=== PATIENT | female | born 1970 | race African-American/Black ===

== ENCOUNTER 2016-10-04 08:50 | Emergency (ER) | payer OTHER ==
[~2016-10-04] VITALS: Ht 167.6 cm; Wt 127.0 kg
--- NOTE | ~2016-10-04 | EKG ---
[address] [address] [place] [address] ELECTROCARDIOGRAM REPORT Name: RENETTA WISE Nikole [id number] Admission: 10/04/16 Attend Phys: Discharge: 10/04/16 Date of : 72 Report #: [id number] THIS REPORT FOR: //name// [facility] ED Test Date: 2016-10-04 Test Time: 08:55:23 Pat Name: RENETTA WISE Department: Room: Gender: F Die Barber: : 1970 Requested By: Rigo Atwood Order Number: [id number] MD: Tino Sherwood Measurements Intervals [place] Rate: 80 P: 47 RI: 170 QRS: 27 QRSD: 93 T: 23 QT: 382 QTc: 441 Interpretive Statements Sinus rhythm No significant abnormality Compared to ECG 09/21/2005 13:39:29 Sinus arrhythmia no longer present Ventricular premature complex(es) no longer present Electronically Signed On 10-05-2016 7:27:49 CDT by Tino Sherwood [email or web address] <ELECTRONICALLY SIGNED> By: Tino Sherwood MD, [facility] 10/05/16 0727 D: [id number] Tino Sherwood MD, [facility] /EPI
[~2016-10-04 08:50] MED LIST: VICODIN 5-5001 EACH PO
[2016-10-04] MEDS ORDERED: HYDROCHLOROTHIA25 M2 PO (09:03)
[2016-10-04] MEDS ORDERED: NORVASC5 MG PO (09:03)
[2016-10-04] MEDS ORDERED: ATIVAN0.5 MG PO (09:03)
[2016-10-04] MEDS ORDERED: ASPIR 8181 MG PO (09:03)
[2016-10-04] MEDS ORDERED: KLOR-CON 1010 MEQ PO (09:04)
[2016-10-04] MEDS ORDERED: BYSTOLIC 5 MG5 M1 PO (09:04)
[2016-10-04 09:22] LABS: ABSOLUTE NEUTROPHILS 4.5 thou/uL (1.4-8.2); BASOPHILS 0.4 % (0.0-2.0); EOSINOPHILS 1.6 % (0.0-3.0); HEMATOCRIT 35.1 % (37.0-47.0); HEMOGLOBIN 11.8 gm/dL (12.0-15.0); MCHC 33.6 g/dL (28.0-37.0); MCV 92.3 fL (80.0-100.0); PLATELET COUNT 235 thou/uL (150-400); RDW 12.8 % (10.5-14.5); WBC 6.4 thou/uL (4.0-11.0)
[2016-10-04 09:27] LABS: MANUAL DIFF NO
[2016-10-04 09:34] LABS: ANION GAP 7 mmol/L (7-16); BUN 18 mg/dL (7-18); CALCIUM 8.9 mg/dL (8.5-10.1); CHLORIDE 101 mmol/L (98-107); CO2 29 mmol/L (21-32); CREATININE 0.9 mg/dL (0.6-1.0); GLUCOSE 121 mg/dL (74-106); POTASSIUM 3.1 mmol/L (3.5-5.1); SODIUM 137 mmol/L (136-145)
[2016-10-04 09:36] LABS: APTT 24.1 Seconds (24.5-32.8); PROTIME 9.8 Seconds (9.3-11.4)
[2016-10-04 09:52] LABS: ALBUMIN 3.4 g/dL (3.4-5.0); ALKALINE PHOSPHATASE 66 U/L (46-116); CK-MB MASS < 0.5 ng/mL (<0.5-3.6); MAGNESIUM 2.3 mg/dL (1.8-2.4); NT-PRO BRAIN NAT PEPTIDE 40 pg/mL (<300); SGOT 24 U/L (15-37); SGPT 31 U/L (30-65); TOTAL BILIRUBIN 0.4 mg/dL (<0.1-1.0); TOTAL PROTEIN 8.2 g/dL (6.4-8.2); TROPONIN-I < 0.04 ng/mL (<0.04-0.07)
[2016-10-04] MEDS ORDERED: BUTALB-APAP-CA1 EACH PO (10:33)
[2016-10-04 10:43] VITALS: BP 105/61
== END 2016-10-04 10:35 | disposition home or self-care (01) ==
LOC: ER 08:50
PROVIDERS: Emergency Medicine
DX: F41.9 Anxiety disorder, unspecified (principal); R51 Headache; R00.2 Palpitations; E87.6 Hypokalemia; Z90.49 Acquired absence of other specified parts of digestive tract; Z79.82 Long term (current) use of aspirin; Z88.6 Allergy status to analgesic agent

== ENCOUNTER → 2016-11-06 | Outpatient (CLI) | payer OTHER ==
[~2016-11-06] MED LIST changes: +ASPIR 8181 MG PO; +ATIVAN0.5 MG PO; +BUTALB-APAP-CA1 EACH PO; +BYSTOLIC 5 MG5 M1 PO; +HYDROCHLOROTHIA25 M2 PO; +KLOR-CON 1010 MEQ PO; +NORVASC5 MG PO
== END ==
LOC: RAD 09:22
DX: G44.209 Tension-type headache, unspecified, not intractable (principal); M54.2 Cervicalgia

== ENCOUNTER 2016-11-27 23:41 | Emergency (ER) | payer OTHER ==
[~2016-11-27] VITALS: Ht 167.6 cm; Wt 130.6 kg
[2016-11-28] MEDS ORDERED: NORCO 5-325 TA1 EACH PO (00:14)
[2016-11-28 01:14] VITALS: BP 130/80
== END 2016-11-28 01:15 | disposition home or self-care (01) ==
LOC: ER 23:41
DX: G44.209 Tension-type headache, unspecified, not intractable (principal); M54.12 Radiculopathy, cervical region; M43.6 Torticollis; Z90.49 Acquired absence of other specified parts of digestive tract; Z88.6 Allergy status to analgesic agent

== ENCOUNTER → 2016-12-05 | Outpatient (CLI) | payer OTHER ==
[~2016-12-05] VITALS: Ht 167.6 cm; Wt 127.0 kg
[~2016-12-05] MED LIST changes: +CARISOPRODOL 3350 MG PO; +NEURONTIN 300300 M1 PO; +NORCO 5-325 TA1 EACH PO
--- NOTE | ~2016-12-05 | HPC ---
[facility] [address] [place] [address] PAIN MANAGEMENT CONSULTATION Name: POLO WISENIRMALA Agustin Room #: REG JEREMY Brennan.#: [id number] Admission: 12/05/16 Attend Phys: Jony De Leon DO Discharge: Date of : 72 Report #: [id number] THIS REPORT FOR: //name// CC: Jony Guy MD DATE OF SERVICE: 12/05/2016 REFERRING PHYSICIAN: Elvis Guy MD CHIEF COMPLAINT: Right neck and head pain. HISTORY OF PRESENT ILLNESS: As you know, the patient is a 46-year-old female with longstanding history of right neck and head pain. The patient states her pain began in April 2016, and has been periodic since that time. She is currently involved in physical therapy twice a week for 6 weeks, this does not improve symptoms. The patient does relay information about previous evaluation by her primary care physician in regards to temporal arteritis, apparently she had an elevated sed rate or CRP and temporal arteritis was given as a diagnosis, she underwent a temporal artery biopsy, but did not note temporal arteritis by the biopsy, she was started on prednisone, which caused excessive weight gain. She subsequently stopped the steroids, she did not note improvement in symptoms with this treatment. She indicates that she becomes dizzy, disoriented and feels like she is going to "pass out" when her pain is present, it appears the symptoms are radiating from the lateral portion of the right neck, radiating towards the mandible as well as to the mastoid area. She has been referred to our service for evaluation by her primary care physician with concerns of torticollis. PAST MEDICAL HISTORY: 1. Hypertension. 2. Anxiety disorder. 3. Morbid obesity. PAST SURGICAL HISTORY: No surgical history. SOCIAL HISTORY: The patient denies tobacco, alcohol, IV or illicit drug use. She is employed as a ASSOCIATE SOFTWARE DEVELOPMENT ENGINEER/CMP, working, not receiving workmen's compensation nor is she trying to obtain disability benefits. She is unaccompanied at today's visit. REVIEW OF SYSTEMS: Positive for weight gain, night sweats, fatigue and weakness, frequent and recurrent head pain and headaches, blurred and double vision, dizziness, palpitations, nervousness and insomnia, heat and cold intolerances. All other review of systems negative per 12-point review of [address] [address] PAIN MANAGEMENT CONSULTATION Name: RENETTA WISE Room #: REG [facility] Brennan.#: [id number] Admission: 12/05/16 Attend Phys: Jony De Leon DO Discharge: Date of : 72 Report #: [id number] systems other than those listed in history of present illness. PAIN IMPACT SCORE: 22/70 indicating jeav-ur-iuadxswv interference of daily activities secondary to pain. ALLERGIES: IBUPROFEN. CURRENT MEDICATIONS: Hydrocodone/acetaminophen 5/325 one tab every 4 hours p.r.n. for pain, potassium chloride 10 mEq p.o. daily, Bystolic 5 mg per day, amlodipine 5 mg per day, lorazepam 0.5 mg once a day, hydrochlorothiazide 25 mg per day, and aspirin 81 mg per day. IMAGING: X-ray of the cervical spine obtained on 11/06/2016, shows no evidence of compression fracture, subluxation, no significant disk space narrowing, lateral masses are aligned, open mouth view is normal. Paravertebral tissues are normal. PHYSICAL EXAMINATION: VITAL SIGNS: Blood pressure 140/83, pulse 70, respiratory rate 20 and unlabored, the patient is 100% on room air, height 5 feet 6 inches tall, weight 280 pounds, and BMI calculated 45.2. GENERAL: Well-developed, well-nourished, well-hydrated, morbidly obese 46-year-old female, appears her stated age, she is in moderate distress secondary to pain, placing current pain score 8/10. HEENT: Normocephalic, atraumatic. Pupils are equal, round, and reactive to light. Extraocular muscles are intact. Sclerae nonicteric without injection. NEUROLOGIC: Cranial nerves 2-12 are grossly intact. Speech is fluent. The patient deemed a fair historian. LUNGS: Clear. No wheeze, rhonchi, or rales. CARDIOVASCULAR: Regular. No appreciable gallop or rub. ABDOMEN: Soft, obese, nontender, nondistended, normoactive bowel sounds. EXTREMITIES: Show no clubbing, no cyanosis, and no edema. MUSCULOSKELETAL: The patient does have some palpatory tenderness over the paraspinal musculature of the cervical spine, the most exquisite point of tenderness is directly over the temporomandibular joint of the right jaw. There is also underlying and overlying mastoid muscle pain with deep palpation, this radiates pain in the patient's typical distribution. Bearing down in a biting maneuver exacerbates symptoms. There is some palpatory tenderness over the sternocleidomastoid muscle on the right when compared to left. ASSESSMENT: 1. Chronic neck pain. 2. Temporomandibular joint dysfunction. 3. Tension headache. 4. Chronic intractable pain. [address] [address] PAIN MANAGEMENT CONSULTATION Name: RENETTA WISE Room #: ETTA Serna#: [id number] Admission: 12/05/16 Attend Phys: Jony De Leon DO Discharge: Date of : 72 Report #: [id number] PLAN: 1. Based on today's physical exam, the history the patient has provided, the description the patient uses in regards to pain likely source of the patient's symptoms is myofascial in origin. It appears the patient is suffering from temporomandibular joint pain on the right, this is likely due to bruxism. The patient denies any grinding of the teeth at night, though this is not necessarily needing to be present to cause increasing temporomandibular joint symptoms. I did elicit pain with opening and closing the mandible, both active and passively. This is a possible promoter of the patient's symptoms, certainly fits with the distribution of symptoms currently. There is also noted paraspinal muscular tenderness on the strap muscles on the right, the most affected appears to be the sternocleidomastoid muscle, this is likely the source of the patient's ongoing neck symptoms. We discussed with the patient the diagnosis of temporal arteritis, which was evaluated with a temporal artery biopsy, but many times these biopsies are not conclusive the fact that she did not improve with steroid would indicate the temporal arteritis would be low on the differential. I believe her symptoms were more myofascial in origin involving the mastoid muscle temporomandibular joint and the sternocleidomastoid area. 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 I would recommend conservative approach for treatment and referral to neurology. 2. The patient will be referred to neurology for chronic right head pain. Further evaluation and possible injections with Botox may be warranted in this patient's case. We have sent the patient for evaluation from neurology standpoint to rule out any underlying issues not elicited by the physical exam today. We will await the findings from her evaluation. 3. We will start the patient on gabapentin 300 mg at night, she will continue for 3 nights, then increase to 600 mg for 3 nights and then 900 mg, we given the patient 90 tablets to begin the escalation of dose, she will watch for side effects with its use. We are adding this for any neuropathic pain component. 4. The patient indicates that her headache and jaw pain was resolved with Soma in the past, we will start the patient on the Soma 350 mg dose 1 tab p.o. t.i.d., I have given the patient #90 tablets, advised the patient not to drive, operate heavy equipment or work while on this medication. This medication can cause somnolence, decreased medication acuity, disorientation, confusion, mental slowing significant enough that I recommend no use of this during work hours or driving. The patient had noted improvement in these symptoms in the past with Soma, which would indicate a high component of anxiety and muscle spasming. 5. We wish to thank Dr. Elvis Guy for the referral of this patient to our clinic. We will keep you apprised of the patient's response to treatment. We [facility] [address] [place] [address] PAIN MANAGEMENT CONSULTATION Name: RENETTA WISE Room #: REG JEREMY Serna#: [id number] Admission: 12/05/16 Attend Phys: Jony De Leon DO Discharge: Date of : 72 Report #: [id number] will adjust medications and hopefully have the patient return to your capable hands. We will also keep you apprised of the neurology evaluation we requested. By: [id number] Jony De Leon DO /nt
[2016-12-05 10:31] VITALS: BP 140/83
== END | disposition home or self-care (01) ==
LOC: PAIN 06:28
DX: M26.601 Right temporomandibular joint disorder, unspecified (principal); G44.209 Tension-type headache, unspecified, not intractable; G89.29 Other chronic pain; I10 Essential (primary) hypertension; F41.8 Other specified anxiety disorders; E66.01 Morbid (severe) obesity due to excess calories; Z88.6 Allergy status to analgesic agent; Z79.899 Other long term (current) drug therapy; Z79.82 Long term (current) use of aspirin; Z68.42 Body mass index [BMI] 45.0-49.9, adult

== ENCOUNTER 2016-12-15 19:57 | Emergency (ER) | payer OTHER ==
[~2016-12-15] VITALS: Ht 172.7 cm; Wt 127.0 kg
--- NOTE | ~2016-12-15 | EKG ---
[address] [address] [place] [address] ELECTROCARDIOGRAM REPORT Name: POLO WISENIRMALA Agustin Room #: [facility] [id number] Admission: 12/15/16 Attend Phys: Discharge: 12/15/16 Date of : 72 Report #: [id number] THIS REPORT FOR: //name// [facility] ED Test Date: 2016-12-15 Test Time: 20:09:45 Pat Name: RENETTA WISE Department: Room: Gender: F [employer] Technician: ANDRY : 1970 Requested By: Rigo Atwood Order Number: [id number] MD: Tino Sherwood Measurements Intervals [place] Rate: 76 P: 2 [place]: 159 QRS: 19 QRSD: 94 T: 14 QT: 385 QTc: 433 Interpretive Statements Sinus rhythm Normal tracing Compared to ECG 10/04/2016 08:55:23 No significant changes Electronically Signed On 12-17-2016 13:31:10 CDT by Tino Sherwood [email or web address] <ELECTRONICALLY SIGNED> By: Tino Sherwood MD, [facility] 12/17/16 1331 08 08 Tino Sherwood MD, [facility] /EPI
[2016-12-15 22:06] LABS: HEMOGLOBIN 11.6 gm/dL (12.0-15.0); MCH 30.9 pg (26.0-34.0); MCHC 34.1 g/dL (28.0-37.0); MCV 90.6 fL (80.0-100.0); RBC 3.75 mil/uL (4.20-5.00); RDW 12.7 % (10.5-14.5)
[2016-12-15 22:15] LABS: CALCIUM 8.9 mg/dL (8.5-10.1); CREATININE 0.8 mg/dL (0.6-1.0); POTASSIUM 3.7 mmol/L (3.5-5.1)
[2016-12-15 22:21] LABS: ALBUMIN 3.3 g/dL (3.4-5.0); MAGNESIUM 2.1 mg/dL (1.8-2.4); TOTAL BILIRUBIN 0.3 mg/dL (<0.1-1.0); TOTAL PROTEIN 7.8 g/dL (6.4-8.2)
== END 2016-12-15 22:47 | disposition home or self-care (01) ==
LOC: ER 19:57
PROVIDERS: Emergency Medicine
DX: I49.3 Ventricular premature depolarization (principal); Z88.6 Allergy status to analgesic agent

== ENCOUNTER → 2017-09-12 | Outpatient (CLI) | payer BC | LOC: CAT 12:09 | DX: G23.8 Other specified degenerative diseases of basal ganglia (principal) ==